=== PATIENT | female | born 1995 | race Caucasian/White ===

== ENCOUNTER → 2017-12-14 08:07 | Outpatient (CLI) | payer OTHER, MEDICAID, SELFPAY ==
--- NOTE | 2017-12-14 08:10 | DI.MRI.S_ITS ---
PROCEDURE: MR HEAD/BRAIN WO CON INDICATIONS: cluster headaches TECHNIQUE: Noncontrast axial T1 spin echo, axial T2 fast spin echo, sagittal and axial FLAIR, coronal T2 fast spin echo, axial gradient echo, axial diffusion and ADC through the brain. COMPARISON: [facility], CT, HEAD WITHOUT CONTRAST, 04/20/2011, 10:11. FINDINGS: Image quality: Excellent. CSF Spaces: Basal cisterns are patent. No extra-axial fluid collections. Ventricles are normal in size and shape. Brain: No intracranial masses or hemorrhage. Fernandez/white matter interface is normal. Brainstem appears normal. There is mild prominence of the pituitary gland. The cerebellar tonsils extend approximately 3-4 mm below the level of the foramen magnum. Diffusion-weighted images demonstrate no acute ischemic insult. No parenchymal lesions are evident. Normal intravascular flow voids are present. Skull and face: Calvarium has normal marrow signal. Orbits appear normal. Sinuses: Sinuses and mastoids are clear. IMPRESSION: 1. No acute intracranial hemorrhage or ischemia. 2. No parenchymal lesions. 3. Mild prominence of the pituitary gland is likely within normal limits for this patient. Clinical correlation with pituitary axis hormones may be of value, if indicated. 4. Low-lying cerebellar tonsils. Dictated by: Drew Bishop M.D. on 12/14/2017 at 9:46 Approved by: Drew Bishop M.D. on 12/14/2017 at 9:54
== END ==
PROVIDERS: PCP Family Medicine; Visit Provider Family Medicine
DX: G44.009 Cluster headache syndrome, unspecified, not intractable (principal)
CPT/HCPCS: 70551